=== PATIENT | female | born 1985 | race Caucasian/White ===

== ENCOUNTER 2016-07-26 12:20 | Observation (INO) | payer MEDICAID ==
[~2016-07-26] VITALS: Ht 160 cm; Wt 71.0 kg
--- NOTE | ~2016-07-26 | DS ---
ADMIT: 08/23/2016 RM/LOC: 623 [facility] MR#: [id number] 2620 [facility] [address] [place] [phone] MONET MACHADO [address] [place] [address] Discharge Summary SEX: F AGE: 30 : 1985 ADMISSION DATE: 08/23/2016 DISCHARGE DATE: 08/25/2016 Monet is 30 years old. 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 She had fluctuating thyroid levels. Her hypothyroidism required levothyroxine 150 mcg daily. She however would flare into hyperthyroid state intermittently despite medical treatment thus necessitating thyroidectomy. She had thyroid nodules in each thyroid lobe and the thyroidectomy is aimed at treating both the hyperthyroidism as well as diagnosis and treatment of the thyroid nodules. She underwent general anesthesia on 08/23, at which time total thyroidectomy was performed which she tolerated well. Recurrent laryngeal nerve function remained intact. Parathyroid glands were identified and preserved through the dissection. Her postop course was complicated by seizure activity on the night of surgery requiring intravenous Valium treatment. The seizure lasted only a short time of 10-15 minutes. She had a postictal state but within an hour had returned to normal mentation and function. She experienced no further seizure activity through the remainder of her hospital stay which extended into 08/25/2013. Her postop calcium levels dropped into the low 7 range at 7.3 on the night of surgery, but rebounded and on the date of discharge it improved to 7.7, without calcium supplementation. She experienced no hypocalcemic symptoms. Pain was controlled postoperatively with oral hydrocodone/Tylenol. She was dismissed on 08/25 after Hemovac drain was removed. She is tolerating oral alimentation well and her pain is under good control. She will continue levothyroxine 150 mcg daily. Continue all antiseizure medicines at regular doses. We will plan to see her in five days for suture removal. Will also obtain serum calcium at time of postop visit. ADMIT: 08/23/2016 RM/LOC: 623 [facility] MR#: [id number] [address] [id number] [place] [address] Discharge Summary SEX: F AGE: 30 : 1985 She will monitor for any seizure activity through this postoperative course. Will contact myself or Hitesh Rosenthal if problems arise. FINAL DIAGNOSES: 1. 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 2. Thyroid nodules bilateral. 3. Seizure activity. PROGNOSIS: Good. Ayo Walden MD/ vdg JOB #: [id number] CC: Ayo Walden MD, Attending Physician Sanjeev Ferrell MD, Family Physician Hitesh Rosenthal PA-C
--- NOTE | 2016-08-15 15:01 | NUR ---
Received SAD person referral. Pt tried to harm self last when she was 15 years old. Was on anti-depressants and was taken off. Denies any thoughts of self harm. Deny any needs or concerns at this time.
--- NOTE | 2016-08-23 20:48 | NUR ---
PT CALLED FOR ASSISTANCE WITH "FEELING OF ONCOMING SEIZURE". THIS NURSE WAS STANDING AT BEDSIDE DURING ACUTE SEIZURE. PT EYES CLOSED, FISTS CLENCHED, BODY SHOOK FOR 25 SECONDS. PT HAD SLIGHT LOSS OF BLADDER CONTROL, NO VOMITING, NO LOSS OF BOWEL. PT AWAKENS AND IS ALERT, BUT UNABLE TO STATE NAME, LOCATION, OR DAY OF WEEK. VS TAKEN AND CHARTED. PT REORIENTS SELF AND IS ABLE TO DISCERN NAME AND PLACE, WAS ABLE TO GIVE LAST HOLIDAY AND PRESIDENT. PT STATES: "MY BODY HURTS SO BAD, MY FEET ARE HURTING SO BAD." PT STATES NORMAL POST SEIZURE. PT ADVISED WE CALL HER MOTHER, PHONE CALL PLACED. MOTHER STATES POST SEIZURE PT FEET/BODY WILL HURT, DEPENDING ON STRESS LEVEL AT TIME OF SEIZURE WILL DETERMINE HOW MANY SEIZURES WILL FOLLOW. MOTHER ALSO STATES, PCP WILL NO LONGER BE TAKING PT R/T PERSONAL ILLNESS, PT WILL NEED TO FIND NEW PCP. FOLLOW UP PHONE CALL MADE TO DR. VALDIVIA, AWAITING CALL BACK AT THIS TIME. PT APPEARS WITHOUT ANY FURTHER SEIZRES AT THIS TIME. WILL CONTINUE TO MONITOR.
--- NOTE | 2016-08-25 09:07 | OR ---
ADMIT: 08/23/2016 RM/LOC: 623 [facility] MR#: [id number] [address] [address] [place] [address] Operative/Delivery Room Report SEX: F AGE: 30 : 1985 SURGERY DATE: 08/23/2016 SURGEON: Ayo Walden MD PREOPERATIVE DIAGNOSES: 1. Thyroiditis with hyperthyroid. 2. Thyroid nodules, bilateral. POSTOP DIAGNOSES: 1. Thyroiditis with hyperthyroid. 2. Thyroid nodules, bilateral. OPERATION: Total thyroidectomy. ANESTHESIA: General endotracheal. BLOOD LOSS: 30 mL. COMPLICATIONS: None. DESCRIPTION OF PROCEDURE: With the patient in supine position, general endotracheal anesthesia, her eyes were taped. Anterior neck was extended slightly, head supported with a donut pillow. The anterior neck was prepped with ChloraPrep, allowed 3 minutes to dry. The patient was then draped sterilely. An incision made following natural skin crease low in the neck through skin, subcutaneous tissue, and platysma muscle. Skin flaps were then elevated subplatysmally. Bleeding was controlled through the dissection with clamping and coagulation. The strap muscles were then in the midline exposing the thyroid isthmus and each thyroid lobe was exposed by retraction of the strap muscles laterally and blunt dissection. The vessels were treated by clamping and coagulation. The inferior and superior thyroid artery and veins were dissected and clamped and coagulated through the procedure. Each lobe was rotated medially, pedicled at Crane's ligament. Tissue consistent with both the superior and inferior parathyroid glands were identified. The recurrent laryngeal nerves were identified, their identity and function confirmed intact by NIM-2 stimulation. The Crane's ligament was then transected, bleeding was controlled through the procedure with clamping and coagulation and the isthmus was from the trachea. The gland was removed from the field, placed in formalin, and sent to pathology for ADMIT: 08/23/2016 RM/LOC: 623 [facility] MR#: [id number] [address] [place] [phone] [place] [address] Operative/Delivery Room Report SEX: F AGE: 30 : 1985 cytologic examination. Frozen section was not obtained. Two small lymph nodes were present near the superior pole of each lobe and these were excised and sent along with the specimen for examination. The wound was irrigated with saline. Hemostasis was assured. Blood loss approximately 30 mL. A 7-mm Rob-Stallworth drain was placed, brought out the left side of strap muscles and incision. The wound was closed in layers with 3-0 chromic catgut to the midline strap muscles, inverted simple stitches to the platysmal layer, and a running horizontal mattress suture to the skin. The drain was sutured to the skin with silk and a thyroid dressing applied. She tolerated this very well. She emerged from general anesthesia in the operating room, was extubated in the operating room, and transferred to the recovery room in good condition. She experienced no stridor nor airway distress. Ayo Walden MD/ ricardo JOB #: [id number] CC: Ayo Walden, Attending Physician Sanjeev Ferrell, Family Physician
[2016-08-26] MEDS ORDERED: SYNTHROID DPS0.15 MG PO (18:08)
[2016-08-26] MEDS ORDERED: MIRALAX PACKET17 GM PO (18:08)
[2016-08-26] MEDS ORDERED: NORCO 5-325 TA1 EACH PO (18:08)
[2016-08-26] MEDS ORDERED: KEPPRA DPS500 MG PO (18:08)
[2016-08-26] MEDS ORDERED: DEPAKOTE500 MG PO (18:08)
[2016-08-26] MEDS ORDERED: BACITRACIN15 G1 TP (18:09)
[2016-08-26] MEDS ORDERED: CALTRATE-600 D600 MG PO (18:09)
--- NOTE | 2016-09-09 10:14 | HP ---
ADMIT: 08/23/2016 RM/LOC: [facility] MR#: [id number] [address] [facility] [address] [place] [phone] [place] [address] Pre-OP History and Physical SEX: F AGE: 30 : 1985 DATE OF SERVICE: HISTORY OF PRESENT ILLNESS: Misty is a 30 years old. She is admitted for thyroidectomy and treatment of thyroiditis. She has wax and wane between hyper and hypothyroidism as evidenced by abnormal TSH of T3 and T4. Her TSH is ranged from 0.03 up to 74. At times, she has required thyroid hormone replacement. She does have TPO antibody titer that is positive at 804 indicative of Faustino thyroiditis. TSI level is normal. Thyroid ultrasound shows bilateral thyroid nodules, left 1.1 cm and right 1.4 cm. Treatment options for her thyroid condition have been discussed. Thyroidectomy has been elected. This will help with therapeutic purposes concerning her fluctuating hyperthyroidism and will also allow diagnostic studies of the thyroid nodules to assure their histologic nature. We have discussed the rationale for the surgery, discussed the risks including risks of anesthesia, recurrent laryngeal nerve injury, parathyroid gland dysfunction, and resultant hypocalcemia and we have also discussed the resultant surgical scar, risk of wound infection, and risk of bleeding. She is in acceptance of these risks. She is in good understanding. She is admitted at this time for general anesthesia. In June of this year, she developed a seizure disorder. This has been under control with antiseizure medicine (Keppra), and she has not had an active seizure since August 06. TSH level on 08/22/2016 is mid normal. She is admitted at this time for general anesthesia. MEDICATIONS: Prior to admission: 1. Keppra. 2. Effexor. ALLERGIES: DURICEF. PAST MEDICAL HISTORY: Appendectomy, thyroid biopsy in 2000, benign; and sections. REVIEW OF SYSTEMS: Positive for asthma. Past history of drug addiction, stomach ulcer, and past history of MRSA. SOCIAL HISTORY: She does not drink alcohol. She does use caffeine daily and smokes cigarettes daily. She does not use alcohol nor does she use recreational drugs for 24 months. FAMILY HISTORY: No known anesthetic complications or coagulopathies. PHYSICAL EXAMINATION: GENERAL: A 30-year-old, alert. HEENT: Pupils are equal, conjunctivae clear. She has no proptosis, exophthalmos, or lid lag. Ear canals, TMs middle ears clear. Nose, mouth, pharynx, larynx with good symmetry, structure, and function. ADMIT: 08/23/2016 RM/LOC: [facility] MR#: [id number] [address] [place] [phone] MONET MACHADO [address] [place] [address] Pre-OP History and Physical SEX: F AGE: 30 : 1985 NECK: Prominent thyroid gland, bilateral. Nontender. No ulcer or palpable adenopathy. LUNGS: Clear. HEART: Rhythm is regular. EXTREMITIES: Normal. IMPRESSION: 1. Thyroid nodules bilateral. 2. Thyroid function abnormality alternating hyper and hypothyroidism secondary to Faustino thyroiditis. 3. Seizure disorder. PLAN: Thyroidectomy. Ayo Walden MD/ ricardo JOB #: [id number] CC: Ayo Walden, Attending Physician UNKNOWN, Family Physician
== END 2016-08-25 13:52 | disposition home or self-care (01) ==
LOC: WOR 08-23 05:37 → 6PED 08-23 05:37 → WOR 08-23 05:37 → 6PED 08-23 09:14
PROVIDERS: ADMIT Otolaryngology
PROC: 0GTK0ZZ Resection of Thyroid Gland, Open Approach (ICD-10-PCS; principal; 2016-08-23)
DX: E06.3 Autoimmune thyroiditis (principal); J45.909 Unspecified asthma, uncomplicated; F17.210 Nicotine dependence, cigarettes, uncomplicated; G40.909 Epilepsy, unspecified, not intractable, without status epilepticus; Z90.49 Acquired absence of other specified parts of digestive tract; Z98.890 Other specified postprocedural states; Z88.8 Allergy status to other drugs, medicaments and biological substances; Z79.899 Other long term (current) drug therapy

== ENCOUNTER 2016-07-31 16:47 | Emergency (ER) | payer MEDICAID ==
--- NOTE | 2016-08-01 13:42 | ER ---
ADMIT: 07/31/2016 RM/LOC: ER [facility] MR#: [id number] 2620 [facility] [address] [place] [phone] MON[place] [address] Emergency Room Report SEX: F AGE: 30 : 1985 DATE: 07/31/2016 HISTORY OF PRESENT ILLNESS: The patient is a 30-year-old female, who allegedly was recently diagnosed with seizure-like activity and was put on Keppra last night and per partner today, the patient had 2 episodes of seizure- like activity, tonic and staring and being confused after the seizure-like activity, each activity lasted about 1-2 minutes but between these 2 episodes, the patient regained complete alertness. The patient denies any drug use or using new medications except for Keppra. Also denies any head trauma or fever. In the ER, patient is not confused, is not postictal, is in no pain or distress. PHYSICAL EXAMINATION: VITAL SIGNS: The patient was afebrile. Vitals are normal. HEAD AND NECK: The patient had normal pupils, 3 mm, reactive to light bilaterally. No nystagmus. No signs of trauma to the head and neck. No spinal midline tenderness or step-offs. CHEST: Clear bilaterally. Normal heart sounds. ABDOMEN: Soft. Motor and sensory is grossly normal. Normal cerebellar test and normal cranial nerves. There is no laceration of the tongue. The patient had loose urinary control. Followup CT scan did not show any new changes. THS normal, prolactin was normal. Urine tox was negative. The rest of the lab work was noncontributory. The patient was observed, did not develop any new symptoms. The patient is stable and was advised to continue taking Keppra follow up with the primary doctor tomorrow morning. The patient was given the strict return precautions and was sent home. Mukul Hector MD/ ricardo JOB #: [id number] CC: Danny Adams MD, Attending Physician Sanjeev Ferrell MD, Family Physician
[2016-08-26] MEDS ORDERED: NORCO 5-325 TA1 EACH PO (18:08)
[2016-08-26] MEDS ORDERED: KEPPRA DPS500 MG PO (18:08)
[2016-08-26] MEDS ORDERED: MIRALAX PACKET17 GM PO (18:08)
[2016-08-26] MEDS ORDERED: DEPAKOTE500 MG PO (18:08)
[2016-08-26] MEDS ORDERED: SYNTHROID DPS0.15 MG PO (18:08)
[2016-08-26] MEDS ORDERED: CALTRATE-600 D600 MG PO (18:09)
[2016-08-26] MEDS ORDERED: BACITRACIN15 G1 TP (18:09)
== END 2016-07-31 20:00 | disposition home or self-care (01) ==
LOC: ER 16:47
DX: G40.909 Epilepsy, unspecified, not intractable, without status epilepticus (principal); E03.9 Hypothyroidism, unspecified; F17.210 Nicotine dependence, cigarettes, uncomplicated; Z88.5 Allergy status to narcotic agent; Z79.899 Other long term (current) drug therapy

== ENCOUNTER 2016-08-31 03:06 | Emergency (ER) | payer MEDICAID ==
[~2016-08-31 03:06] MED LIST: BACITRACIN15 G1 TP; CALTRATE-600 D600 MG PO; DEPAKOTE500 MG PO; KEPPRA DPS500 MG PO; MIRALAX PACKET17 GM PO; NORCO 5-325 TA1 EACH PO; SYNTHROID DPS0.15 MG PO
--- NOTE | 2016-09-10 07:17 | ER ---
ADMIT: 08/31/2016 RM/LOC: ER [facility] MR#: [id number] 2620 [facility] [address] [place] [phone] [place] [address] Emergency Room Report SEX: F AGE: 30 : 1985 DATE: 08/31/2016 CHIEF COMPLAINT: Seizures. HISTORY OF PRESENT ILLNESS: The patient is a 30-year-old female, who is being worked up for the possibility of seizures, who presents to the ER with her dad for possible seizure activity that occurred this evening. They state that she has been diagnosed with what is thought to be possibly seizures in the past month, has been started on Keppra and Depakote but has not been able to get in to see a neurologist yet. She did have her thyroid removed last week for diagnosis of Faustino's thyroiditis. She states that she had been feeling fine since her surgery last week but then had the episode this evening that her dad describes as shaking in all 4 extremities but no loss of consciousness but her inability to answer them. They state that she had some urinary incontinence with her first episode but none since. REVIEW OF SYSTEMS: Denies any recent fevers, chills, nausea, vomiting, change in bowel or bladder function. She does not have any abdominal pain. No chest pain. She denies any numbness, tingling, or weakness in the extremity. Does have slight tingling in her face diffusely. She did have a leg cramp earlier this evening in her right calf that resolved. PAST MEDICAL HISTORY: Faustino's thyroiditis and possible seizure activity. PAST SURGICAL HISTORY: She has had a thyroidectomy done. MEDICATIONS: See nurse's note. She is currently on Keppra and Depakote. ALLERGIES: SEE NURSE'S NOTE. SOCIAL HISTORY: Lives with her parents at this time. Denies any drug use. PHYSICAL EXAMINATION: GENERAL: The patient is alert, oriented. No signs of any trauma. HEENT: Pupils are equal, round, and reactive to light. Extraocular muscles are intact. NECK: Supple. HEART: Regular rate and rhythm. LUNGS: Clear to auscultation. ABDOMEN: Soft. EXTREMITIES: The patient moves all extremities. NEUROLOGIC: Sensation and motor are grossly intact. She has good pulses in all 4 extremities. SKIN: She has no skin lesions or rashes noted. LABORATORY DATA: CBC is normal. Chemistries are normal. Lactic acid is 0.7. Prolactin is 5.4. Free T3 is 3.2. Free T4 is 1.63. TSH is 0.052. Urine is negative. ADMIT: 08/31/2016 RM/LOC: ER [facility] MR#: [id number] [address] [place] [phone] [place] [address] Emergency Room Report SEX: F AGE: 30 : 1985 EMERGENCY DEPARTMENT COURSE: Based on description of the event, I am not sure that patient truly did have a seizure. She has not had a workup by a neurologist yet to determine this. I did check a prolactin level which was normal, which I expect will be elevated in the seizure, and she also had a normal lactic acid. With her reporting 3 episodes of seizures lasting several minutes each in the past hour, I would expect it to be somewhat elevated. While in the ER, she did receive some fluid hydration, normal saline, and did get a 500 mg IV dose of Keppra. Her Depakote level was therapeutic here. She has no other symptoms and is feeling essentially back to her baseline at this time. She is discharged home to continue taking her Keppra and Depakote and she is to follow up later today with her Ear, Nose, and Throat doctor for her followup visit from her thyroidectomy and is to follow up with her primary care physician that is already scheduled for tomorrow. She is to continue taking her Depakote and Keppra as prescribed, and she is to return to the ER for any other concerning symptoms. DIAGNOSIS: Possible seizure activity. Moncho Sofia MD/ ricardo JOB #: [id number] CC: Moncho Sofia MD, Attending Physician
== END 2016-08-31 05:05 | disposition home or self-care (01) ==
LOC: ER 03:06
DX: G40.909 Epilepsy, unspecified, not intractable, without status epilepticus (principal); R32 Unspecified urinary incontinence; F17.210 Nicotine dependence, cigarettes, uncomplicated; Z88.8 Allergy status to other drugs, medicaments and biological substances; Z98.890 Other specified postprocedural states; Z79.899 Other long term (current) drug therapy